=== PATIENT | female | born 1970 | race Caucasian/White ===

== ENCOUNTER 2018-01-24 20:41 | Emergency (ER) | payer SELFPAY ==
[~2018-01-24] VITALS: Ht 172.7 cm; Wt 100.0 kg
[2018-01-24 21:27] LABS: MEAN CORPUSCULAR HEMOGLOBIN 32.7 pg (27.0-34.8); MEAN CORPUSCULAR HGB CONC 33.5 g/dL (32.4-35.8); MEAN CORPUSCULAR VOLUME 97.7 fL (80-100); PLATELET COUNT 278 x10^3/uL (130-400); RED BLOOD COUNT 3.98 x10^6/uL (3.82-5.3); RED CELL DISTRIBUTION WIDTH 13.5 % (9.6-15.2)
[2018-01-24 21:36] LABS: ALANINE AMINOTRANSFERASE 36 U/L (12-78); ALBUMIN 3.2 g/dL (3.4-5.0); ANION GAP 5 mmol/L (5-15); CALCIUM 8.8 mg/dL (8.5-10.1); CHLORIDE 111 mmol/L (98-107); CREATININE 0.97 mg/dL (0.55-1.02)
[2018-01-24 21:38] LABS: ALKALINE PHOSPHATASE 77 U/L (45-117); BILIRUBIN,TOTAL 0.5 mg/dL (0.2-1.0); TOTAL PROTEIN 6.8 g/dL (6.4-8.2)
[2018-01-24 21:55] LABS: BASOPHILS # (AUTO) 0.06 x10^3/uL (0-0.1); BASOPHILS % (AUTO) 0 % (0-1); EOSINOPHILS # (AUTO) 0.37 x10^3/uL (0-0.4); EOSINOPHILS % (AUTO) 2 % (1-7); LYMPHOCYTES # (AUTO) 2.71 x10^3/uL (1-3.4); LYMPHOCYTES % (AUTO) 14 % (22-44); MD SCAN; MONOCYTES # (AUTO) 1.05 x10^3/uL (0.2-0.8); MONOCYTES % (AUTO) 6 % (2-9); NEUTROPHILS # (AUTO) 14.71 x10^3/uL (1.8-6.8); NEUTROPHILS % (AUTO) 78 % (42-75)
[2018-01-24 22:00] LABS: CULTURE INDICATED? NO; MICROSCOPIC NOT IND
[2018-01-24] MEDS ORDERED: KETOROLAC 30 MG/1 ML IM ONE (22:30)
[2018-01-24] MEDS ORDERED: OXYcodone/APAP 5/325MG TABLET PO ONE (22:30)
[2018-01-24] MEDS ORDERED: KETOROLAC 30 MG/1 ML ONE (22:45)
[2018-01-24] MEDS ORDERED: OXYcodone/APAP 5/325MG TABLET ONE (22:46)
[2018-01-24 23:27] VITALS: BP 139/91
== END 2018-01-24 23:47 | disposition home or self-care (01) ==
LOC: ED 23:41
DX: S70.11XA Contusion of right thigh, initial encounter (principal); S30.1XXA Contusion of abdominal wall, initial encounter; V49.19XA Passenger injured in collision with other motor vehicles in nontraffic accident, initial encounter; Y93.89 Activity, other specified; Y92.488 Other paved roadways as the place of occurrence of the external cause; Y99.8 Other external cause status
CPT/HCPCS: 36415; 73552; 80053; 81003; 85025; 93971; 96372; 99285; J1885